=== PATIENT | male | born 1975 | race Caucasian/White ===

== ENCOUNTER 2016-08-10 03:40 | Emergency (ER) | payer MEDICAID ==
[~2016-08-10] VITALS: Ht 165.1 cm; Wt 82.1 kg
[2016-08-10 03:44] VITALS: BP 128/68
--- NOTE | 2016-08-10 03:49 | NUR ---
PT TAKEN TO BED 3
[2016-08-10] MEDS ORDERED: NACL 0.9% 1,000 ML IV ONE ×2 (04:00→05:30)
[2016-08-10] MEDS ORDERED: INSULIN HUMAN REGULAR 100 UNITS/ML 10 ML VIAL IVP ONE ×2 (04:00→05:35)
--- NOTE | 2016-08-10 04:01 | NUR ---
Dr. Monte evaluating patient at bedside.
--- NOTE | 2016-08-10 04:10 | NUR ---
41Y/M PATIENT PRESENTS TO ED WITH C/O ABDOMINAL PAIN X 1 HR . PT STATES PAIN WHEN WOKE UP X 1 HR WITH FEELING NAUSEA, NO FEVER, NO MEDICAL HX, HEAVY DRINK.; SKIN IS PINK/WARM/DRY; AAOX4 WITH EVEN AND STEADY GAIT; LUNGS CLEAR BL; HR EVEN AND REGULAR; PT DENIES ANY FEVER, CP, SOB, OR COUGH AT THIS TIME; PATIENT STATES PAIN OF 9/10 AT THIS TIME; VSS; PATIENT POSITIONED FOR COMFORT; HOB ELEVATED; BEDRAILS UP X2; BED DOWN. ER MD MADE AWARE OF PT STATUS.
[2016-08-10 04:14] LABS: MEAN CORPUSCULAR HEMOGLOBIN 33 pg (27-31)
[2016-08-10 04:14] LABS: APPEARANCE,URINE CLEAR (CLEAR); BILIRUBIN,URINE NEGATIVE (NEGATIVE); BLOOD, URINE NEGATIVE (NEGATIVE); COLOR,URINE YELLOW (YELLOW); LEUKOCYTE ESTERASE ,URINE NEGATIVE (NEGATIVE); NITRITE, URINE NEGATIVE (NEGATIVE); PROTEIN,URINE NEGATIVE (NEGATIVE); UGLUCOSE 3+ (NEGATIVE); UROBILINOGEN,URINE 0.2 EU/dL (0.2 - 1)
[2016-08-10 04:18] LABS: HEMATOCRIT 39.9 % (36-52); HEMOGLOBIN 13.4 g/dL (12.0-18.0); MEAN CORPUSCULAR HGB CONC 34 g/dL (33-37); MEAN CORPUSCULAR VOLUME 97 fL (80-94); PLATELET COUNT (AUTO) 85 K/uL (140-450); RED BLOOD CELL COUNT(AUTO) 4.11 MIL/uL (4.20-6.10); WHITE BLOOD COUNT (AUTO) 8.9 K/uL (4.8-10.8)
[2016-08-10 04:23] LABS: BACTERIA,URINE 0-2 (RARE) /HPF (None Seen); RBC,URINE 0-5 (RARE) /HPF (0-5); SQUAMOUS EPITHELIAL CELL,UR 0-3 (FEW) /LPF (0-3 (FEW)); WBC,URINE 0-5 (RARE) /HPF (0-5)
[2016-08-10 04:29] LABS: ANION GAP 24.2 (8-16); BAND % (MANUAL) 3 % (0-8); CALCIUM 8.3 mg/dL (8.5-10.1); CARBON DIOXIDE 19.2 mmol/L (21-32); CHLORIDE 95 mmol/L (98-107); CREATININE 0.8 mg/dL (0.6-1.3); EOSINOPHILS % (MANUAL) 2 % (0-4); GFR ARICAN-AMERICAN 137 mL/min (>90); GFR NON ARICAN-AMERICAN 113 mL/min (>90); GLUCOSE 352 mg/dL (74-106); LYMPHOCYTES % (MANUAL) 10 % (20-46); MONOCYTES % (MANUAL) 6 % (5-12); NEUTROPHILS % (MANUAL) 79 (43-65); POTASSIUM 3.4 mmol/L (3.5-5.1); SODIUM SERUM 135 mmol/L (136-145); UREA NITROGEN, BLOOD 9 mg/dL (7-18)
[2016-08-10 04:34] LABS: ALANINE AMINOTRANSFERASE 98 U/L (12-78); ALBUMIN 2.9 g/dL (3.4-5.0); ALKALINE PHOSPHATASE 186 U/L (46-116); AMYLASE 31 U/L (25-115); ASPARTATE AMINOTRANSFERASE 91 U/L (15-37); LIPASE 223 U/L (73-393); TOTAL BILIRUBIN 1.2 mg/dL (0.0-1.0); TOTAL PROTEIN, SERUM 7.6 g/dL (6.4-8.2)
[2016-08-10 04:35] LABS: ACETONE, SERUM NEGATIVE (NEGATIVE)
--- NOTE | 2016-08-10 04:38 | NUR ---
PT TAKEN TO CT
--- NOTE | 2016-08-10 04:49 | NUR ---
PT RETURN FROM CT
[2016-08-10] MEDS ORDERED: MORPHINE SULFATE 4 MG/ML SYR IVP ONE (05:30)
[2016-08-10] MEDS ORDERED: POTASSIUM CHLORIDE 10 MEQ TABER PO ONE (05:35)
--- NOTE | 2016-08-10 05:51 | NUR ---
Patient appears to be resting comfortably in bed. Vital Signs within normal limits. Respirations even and unlabored.
--- NOTE | 2016-08-10 06:35 | NUR ---
Patient discharged with v/s stable. Written and verbal after care instructions given and explained. Patient alert, oriented and verbalized understanding of instructions. Ambulatory with steady gait. All questions addressed prior to discharge. ID band removed. Patient advised to follow up with PMD. Rx of METFORMIN 1000 MG given. Patient educated on indication of medication including possible reaction and side effects. Opportunity to ask questions provided and answered. D/C BY DR. NEWTON
[2016-08-10 06:38] VITALS: BP 138/85
== END 2016-08-10 06:35 | disposition home or self-care (01) ==
LOC: MED 03:40
DX: K74.60 Unspecified cirrhosis of liver (principal); E11.9 Type 2 diabetes mellitus without complications; J45.909 Unspecified asthma, uncomplicated
CPT/HCPCS: 36415; 74176; 80053; 81001; 82009; 82150; 82948; 83690; 85025; 96361; 96374; 96375; 96376; 99285; G0482; J1815; J2270; J7030

== ENCOUNTER 2017-09-29 18:13 | Emergency (ER) | payer OTHER ==
[~2017-09-29] VITALS: Ht 165.1 cm; Wt 81.6 kg
--- NOTE | 2017-09-29 18:32 | NUR ---
PT TAKEN VIA WC TO BED 11
[2017-09-29 18:33] VITALS: BP 140/90
--- NOTE | 2017-09-29 18:33 | NUR ---
DR POLLACK AND ER STAFF AT BEDSIDE
[2017-09-29] MEDS ORDERED: NACL 0.9% 1,000 ML IV ONE (18:40)
--- NOTE | 2017-09-29 18:48 | NUR ---
PATIENT PRESENTS TO ED WITH C/O DIFFICULTY BREATHING . PT STATES SYMPTOMS STARTED TODAY. PUT PT ON BEDSIDE MONITOR. HR 94 SPO2 94%, RR 16 BP 138/88. DENIES N/V/D; SKIN IS PINK/WARM/DRY; AAOX4 WITH EVEN AND STEADY GAIT; LUNGS CLEAR BL; HR EVEN AND REGULAR; PT DENIES ANY FEVER, CP, SOB, OR COUGH AT THIS TIME; PATIENT STATES PAIN OF 0/10 AT THIS TIME; VSS; PATIENT POSITIONED FOR COMFORT; HOB ELEVATED; BEDRAILS UP X2; BED DOWN. ER MD MADE AWARE OF PT STATUS.
[2017-09-29 19:11] LABS: BASOPHILS % (AUTO) 0.5 % (0.0-2.0); EOSINOPHILS # (AUTO) 0.1 K/uL (0-0.4); HEMATOCRIT 43.5 % (36-52); LYMPHOCYTES # (AUTO) 2.1 K/uL (2.0-11.5); LYMPHOCYTES % (AUTO) 39.1 % (20.5-51.1); MEAN CORPUSCULAR HEMOGLOBIN 32 pg (27-31); MEAN CORPUSCULAR HGB CONC 35 g/dL (33-37); MEAN CORPUSCULAR VOLUME 93.5 fL (80-94); MONOCYTES # (AUTO) 0.4 K/uL (0.8-1.0); MONOCYTES % (AUTO) 7.9 % (1.7-9.3); NEUTROPHILS # (AUTO) 2.7 K/uL (1.8-7.7); NEUTROPHILS % (AUTO) 50.5 % (42.2-75.2); PLATELET COUNT (AUTO) 79 K/uL (140-450); RED BLOOD CELL COUNT(AUTO) 4.65 MIL/uL (4.20-6.10); RED CELL DISTRIBUTION WIDTH 13.9 % (11.6-13.7); WHITE BLOOD COUNT (AUTO) 5.3 K/uL (4.8-10.8)
--- NOTE | 2017-09-29 19:14 | NUR ---
REPORT GIVEN TO ORTHOTICS PROSTHETICS ASSISTANT RN FOR CONTINUITY OF CARE. PT ON STABLE CONDITION AT THIS TIME.
--- NOTE | 2017-09-29 19:15 | NUR ---
RECEIVED REPORT FROM AM NURSE. PT RESTING IN BED, DENIES PAIN, VSS, PT REPORTS SLIGHT SOB, SPO2 96% ON 2L NC, RR 18 EVEN AND UNLABORED. ALL NEEDS MET AT THIS TIME.
[2017-09-29 19:28] LABS: ALBUMIN 3.6 g/dL (3.4-5.0); ANION GAP 21.5 (8-16); CARBON DIOXIDE 20.2 mmol/L (21-32); POTASSIUM 3.7 mmol/L (3.5-5.1); TOTAL BILIRUBIN 1.1 mg/dL (0.0-1.0)
--- NOTE | 2017-09-29 19:30 | NUR ---
EKG PERFORMED AT BEDSIDE, PT LEFT WITH GOWN ON AND RAILS UP
--- NOTE | 2017-09-29 19:56 | NUR ---
RT AT BEDSIDE FOR ABG
--- NOTE | 2017-09-29 20:08 | NUR ---
Alexandra alexandra in EDM - 09/29/17 at 2009 by JERICA PER NIGHT CLERK AUDITOR, PT'S FRIEND SIENA CALLED , LEFT HER NUMBER FOR TRANSPORT. MADE PT AWARE.
[2017-09-29 20:13] LABS: BARBITURATE, URINE NEG. ng/ml (NEG <=200); BENZODIAZEPINE, URINE NEG. ng/mL (NEG <=200); CANNABINOID, URINE NEG. ng/mL (NEG <=50); COCAINE, URINE NEG. ng/mL (NEG <=300); OPIATE, URINE NEG. ng/mL (NEG <=2000); PHENCYCLIDINE SCREEN,URINE NEG. ng/mL (NEG <=25)
--- NOTE | 2017-09-29 20:38 | NUR ---
PT RESTING IN BED, DENIES PAIN, DENIES SOB, SPO2 94% ON RA, RR 14 EVEN AND UNLABORED. BLOOD SUGAR 435 AT THIS TIME AFTER 1L NS BOLUS. MADE AWARE.
--- NOTE | 2017-09-29 20:54 | NUR ---
Dr. Monte evaluating patient at bedside.
[2017-09-29] MEDS ORDERED: INSULIN REGULAR, HUMAN 100 UNIT/ML VIAL IVP ONE ×2 (21:50→23:55)
--- NOTE | 2017-09-29 23:20 | NUR ---
PT RESTING IN BED COMFORTABLY, RADHA, BS 273, ER MD MADE AWARE. ALL NEEDS MET AT THIS TIME
--- NOTE | 2017-09-30 00:38 | NUR ---
BLOOD SUGAR 268, ER MADE AWARE.
[2017-09-30 01:27] VITALS: BP 120/55
--- NOTE | 2017-09-30 01:28 | NUR ---
Patient discharged with v/s stable. Written and verbal after care instructions given and explained. Patient alert, oriented and verbalized understanding of instructions. Ambulatory with steady gait. All questions addressed prior to discharge. ID band removed. Patient advised to follow up with PMD. Rx of METFORMIN given. Patient educated on indication of medication including possible reaction and side effects. Opportunity to ask questions provided and answered.
== END 2017-09-30 01:28 | disposition home or self-care (01) ==
LOC: MED 18:13
DX: E11.65 Type 2 diabetes mellitus with hyperglycemia (principal); K74.60 Unspecified cirrhosis of liver
CPT/HCPCS: 36415; 36600; 71045; 80053; 80305; 82803; 82948; 83880; 84484; 85025; 93005; 96361; 96374; 96376; 99285; G0482; J1815; J7030; Q0092

== ENCOUNTER 2017-10-06 17:55 | Emergency (ER) | payer OTHER ==
[~2017-10-06] VITALS: Ht 172.7 cm; Wt 81.6 kg
[2017-10-06 18:23] VITALS: BP 124/56
--- NOTE | 2017-10-06 18:40 | NUR ---
PATIENT SENT FROM HIS PCP OFFICE FOR HIGH BLOOD SUGAR. PATIENT DENIES SYMPTOMS. REPORTS WAS RECENTLY RX GLUCOPHAGE BUT HAS YET TO TAKE IT. PATIENT CURRENTLY TAKING METFORMIN. DENIES N/V/D; SKIN IS PINK/WARM/DRY; AAOX4 WITH EVEN AND STEADY GAIT; LUNGS CLEAR BL; HR EVEN AND REGULAR; PT DENIES ANY FEVER, CP, SOB, OR COUGH AT THIS TIME; PATIENT STATES PAIN OF 0/10 AT THIS TIME; VSS; PATIENT POSITIONED FOR COMFORT; HOB ELEVATED; BEDRAILS UP X2; BED DOWN. ER MD MADE AWARE OF PT STATUS.
--- NOTE | 2017-10-06 19:13 | NUR ---
REPORT GIVEN TO PAMELA BIRD
--- NOTE | 2017-10-06 19:15 | NUR ---
PT LAYING IN BED, LIGHTS DIMMNED , COMFORT NEEDS MET AT THIS TIME, WILL CONTINUE TO MONITOR.
[2017-10-06] MEDS ORDERED: NACL 0.9% 500 ML IV ONE (19:22)
[2017-10-06 19:58] LABS: BASOPHILS % (AUTO) 0.6 % (0.0-2.0); EOSINOPHILS # (AUTO) 0.1 K/uL (0-0.4); EOSINOPHILS % (AUTO) 1.9 % (0.0-4.0); HEMATOCRIT 39.2 % (36-52); HEMOGLOBIN 13.6 g/dL (12.0-18.0); LYMPHOCYTES # (AUTO) 1.1 K/uL (2.0-11.5); LYMPHOCYTES % (AUTO) 25.8 % (20.5-51.1); MEAN CORPUSCULAR HEMOGLOBIN 33 pg (27-31); MEAN CORPUSCULAR HGB CONC 35 g/dL (33-37); MONOCYTES # (AUTO) 0.6 K/uL (0.8-1.0); MONOCYTES % (AUTO) 13.6 % (1.7-9.3); NEUTROPHILS # (AUTO) 2.5 K/uL (1.8-7.7); NEUTROPHILS % (AUTO) 58.1 % (42.2-75.2); PLATELET COUNT (AUTO) 61 K/uL (140-450); RED BLOOD CELL COUNT(AUTO) 4.17 MIL/uL (4.20-6.10); RED CELL DISTRIBUTION WIDTH 13.7 % (11.6-13.7); WHITE BLOOD COUNT (AUTO) 4.2 K/uL (4.8-10.8)
[2017-10-06 20:11] LABS: ACETONE, SERUM NEGATIVE (NEGATIVE)
[2017-10-06 20:16] LABS: ALBUMIN 3.4 g/dL (3.4-5.0); ANION GAP 17.6 (8-16); ASPARTATE AMINOTRANSFERASE 48 U/L (15-37); CARBON DIOXIDE 22.2 mmol/L (21-32); CHLORIDE 92 mmol/L (98-107); CREATININE 0.9 mg/dL (0.7-1.3); GFR ARICAN-AMERICAN 119 mL/min (>90); POTASSIUM 3.8 mmol/L (3.5-5.1); SODIUM SERUM 128 mmol/L (136-145); TOTAL BILIRUBIN 1.3 mg/dL (0.0-1.0); UREA NITROGEN, BLOOD 10 mg/dL (7-18)
[2017-10-06] MEDS ORDERED: INSULIN REGULAR, HUMAN 100 UNIT/ML VIAL SUBQ ONE ×2 (20:45→21:10)
[2017-10-06 21:16] LABS: GLUCOSE 518 mg/dL (74-106)
[2017-10-06 21:50] VITALS: BP 126/64
--- NOTE | 2017-10-06 21:50 | NUR ---
Patient discharged with v/s stable. Written and verbal after care instructions given and explained. Patient verbalized understanding. Ambulatory with steady gait. All questions addressed prior to discharge. Advised to follow up with PMD.
== END 2017-10-06 21:50 | disposition home or self-care (01) ==
LOC: MED 17:55
DX: E11.65 Type 2 diabetes mellitus with hyperglycemia (principal)
CPT/HCPCS: 36415; 80053; 82009; 82948; 85025; 96360; 96361; 96372; 99285; J1815; J7030

== ENCOUNTER 2017-12-30 04:00 | Emergency (ER) | payer OTHER ==
[~2017-12-30] VITALS: Ht 165.1 cm; Wt 81.6 kg
[2017-12-30 04:05] VITALS: BP 167/90
--- NOTE | 2017-12-30 04:10 | NUR ---
PT PRESENTS TO ED WITH STANTON X4 DAYS WITH 7/10 PAIN. PT STATES PAIN STARTS AT BACK OF NECK AND MOVES UP TO OCCIPITAL SCALP WITH CONTINUOUS TENTION TYPE OF PAIN. PT DESCRIBES INTERMITTENT BLURRED VISION X4 DAYS. NEURO INTACT. A&OX4. PT STATES NO N/V/D, NO DIZZINES, NO ALOC. PT HAS HX OF DM. POSITIONED IN BED FOR COMFORT. ER MD AWARE. CONTINUE TO MONITOR.
--- NOTE | 2017-12-30 04:10 | NUR ---
PT AMBULATED TO ED BED 12
[2017-12-30] MEDS ORDERED: NACL 0.9% 1,000 ML IV ONE (04:33)
[2017-12-30] MEDS ORDERED: METOCLOPRAMIDE 10 MG/2 ML INJ VIAL IVP ONE (04:35)
[2017-12-30] MEDS ORDERED: KETOROLAC 30 MG/ML VIAL IVP ONE (04:35)
[2017-12-30] MEDS ORDERED: diphenhydrAMINE 50 MG/ML VIAL IVP ONE (04:35)
[2017-12-30] MEDS ORDERED: DIAZEPAM 5 MG TAB PO ONE (05:45)
[2017-12-30 06:10] VITALS: BP 121/69
--- NOTE | 2017-12-30 06:10 | NUR ---
Patient discharged with v/s stable. Written and verbal after care instructions given and explained. Patient alert, oriented and verbalized understanding of instructions. Ambulatory with steady gait. All questions addressed prior to discharge. ID band removed. Patient advised to follow up with PMD. Rx of Valium, Naprosyn, and Sudafed given. Patient educated on indication of medication including possible reaction and side effects. Opportunity to ask questions provided and answered.
== END 2017-12-30 06:10 | disposition home or self-care (01) ==
LOC: MED 04:00
DX: R51 Headache (principal); E11.9 Type 2 diabetes mellitus without complications
CPT/HCPCS: 70450; 82948; 96374; 96375; 99284; J1200; J1885; J2765; J7030

== ENCOUNTER 2017-12-31 15:17 | Emergency (ER) | payer OTHER ==
[~2017-12-31] VITALS: Ht 165.1 cm; Wt 83.5 kg
[2017-12-31 15:36] VITALS: BP 131/84
--- NOTE | 2017-12-31 16:33 | NUR ---
PT AMBULATED TO ER BED 05
[2017-12-31 16:35] VITALS: BP 131/84
--- NOTE | 2017-12-31 16:35 | NUR ---
42y/m bib self c/o perssure headache x 5 days with mild dizziness, denies injury/trauma; full clear speech, no facial asymmetry, denies photophobia, seen yesterday same complaint, be down, bedrail up x 1, er md aware and notified of pt status. hx; dm rx; metformin, glipizide, ibuprofen, naproxen, valium, pseudoephedrine
--- NOTE | 2017-12-31 17:33 | NUR ---
pt eloped, no futher care by dr. yuan, left without dc instructions
== END 2017-12-31 17:33 | disposition left against medical advice (07) ==
LOC: MED 15:17
DX: R51 Headache (principal); E11.9 Type 2 diabetes mellitus without complications
CPT/HCPCS: 99281

== ENCOUNTER 2018-01-01 22:38 | Emergency (ER) | payer OTHER ==
[~2018-01-01] VITALS: Ht 165.1 cm; Wt 81.6 kg
[2018-01-01 22:52] VITALS: BP 128/82
--- NOTE | 2018-01-01 22:54 | NUR ---
42/M W C/O PERSISTENT POSTERIOR HEADACHE X 6 DAYS. DENIES TRAUMA/INJURY, VISUAL DISTURBANCES, N/V, FEVER/CHILLS. REPORTS HE HAS BEEN TAKING 2 IBUPROFEN AND BEER WHICH HAS HELPED WITH HEADACHE. HOWEVER HEADACHE IS PERSISTENT AND CONSTANT. REPORTS TO BE DIRKING 18 BEERS DAILY AND HAS BEEN DECREASING CONSUMPTION. AMB WITH STEADY GAIT. GCS 15,AOX4. PMH: DM
--- NOTE | 2018-01-01 22:54 | NUR ---
Patient ambulated to bed 12. RN evaluating patient at bedside.
[2018-01-01] MEDS ORDERED: NACL 0.9% 1,000 ML IV SCH (23:12)
[2018-01-01] MEDS ORDERED: PROCHLORPERAZINE 10 MG/2 ML VIAL IVP ONE (23:15)
[2018-01-01] MEDS ORDERED: PROCHLORPERAZINE 10 MG/2 ML VIAL ONE (23:31)
[2018-01-02 00:34] VITALS: BP 126/82
--- NOTE | 2018-01-02 00:34 | NUR ---
Patient discharged with v/s stable. Written and verbal after care instructions given and explained. Patient verbalized understanding. Ambulatory with steady gait. All questions addressed prior to discharge. Advised to follow up with PMD. IV removed, catheter intact and site benign. Applied folded 4x4 gauze and tape to stop bleeding.
== END 2018-01-02 00:34 | disposition home or self-care (01) ==
LOC: MED 22:38
DX: G43.909 Migraine, unspecified, not intractable, without status migrainosus (principal); F10.239 Alcohol dependence with withdrawal, unspecified; E11.9 Type 2 diabetes mellitus without complications
CPT/HCPCS: 96374; 99284; J0780; J7030

== ENCOUNTER 2018-03-02 16:54 | Emergency (ER) | payer OTHER ==
[~2018-03-02] VITALS: Ht 165.1 cm; Wt 73.3 kg
[2018-03-02 16:56] VITALS: BP 128/80
--- NOTE | 2018-03-02 18:51 | NUR ---
PATIENT AMBULATED TO BED 10
--- NOTE | 2018-03-02 18:57 | NUR ---
42 YO M BIB FAMILY W/ C/O 10 MEDIAL UPPER ABD PAIN X 1 WEEK. PT REPORTS DIARRHEA (2-3 EPISODES TODAY), DENIES N/V. PT REPORTS FEELING "A LITTLE OFF BALANCE", DENIES DIZZINESS/CP/SOB. AAOX4, GCS 15. ABD SOFT AND TENDER TO PALPATION. BOWEL SOUNDS ACTIVE X 4. NAD. VSS. AWAITING ER MD CARTY.
--- NOTE | 2018-03-02 19:09 | NUR ---
Pt report given to Jacob SANTIAGO. Transfer of care at this time.
--- NOTE | 2018-03-02 19:09 | NUR ---
ASSUMED CARE OF PT FROM PAMELA RAMÍREZ
[2018-03-02] MEDS ORDERED: INSULIN REGULAR, HUMAN 100 UNIT/ML VIAL SUBQ ONE (20:00)
[2018-03-02] MEDS ORDERED: NACL 0.9% 1,000 ML IV ONE (20:00)
[2018-03-02] MEDS ORDERED: ONDANSETRON 4 MG/2 ML VIAL IVP ONE (20:00)
[2018-03-02 20:20] LABS: BASOPHILS % (AUTO) 0.7 % (0.0-2.0); EOSINOPHILS # (AUTO) 0.1 K/uL (0-0.4); EOSINOPHILS % (AUTO) 2.1 % (0.0-4.0); HEMATOCRIT 40.8 % (36-52); HEMOGLOBIN 14.4 g/dL (12.0-18.0); LYMPHOCYTES # (AUTO) 0.8 K/uL (2.0-11.5); LYMPHOCYTES % (AUTO) 21.9 % (20.5-51.1); MEAN CORPUSCULAR HEMOGLOBIN 34 pg (27-31); MEAN CORPUSCULAR HGB CONC 35 g/dL (33-37); MEAN CORPUSCULAR VOLUME 94.6 fL (80-94); MONOCYTES # (AUTO) 0.6 K/uL (0.8-1.0); MONOCYTES % (AUTO) 16.5 % (1.7-9.3); NEUTROPHILS # (AUTO) 2.2 K/uL (1.8-7.7); NEUTROPHILS % (AUTO) 58.8 % (42.2-75.2); PLATELET COUNT (AUTO) 63 K/uL (140-450); RED BLOOD CELL COUNT(AUTO) 4.31 MIL/uL (4.20-6.10); RED CELL DISTRIBUTION WIDTH 14.7 % (11.6-13.7); WHITE BLOOD COUNT (AUTO) 3.7 K/uL (4.8-10.8)
[2018-03-02 20:37] LABS: APPEARANCE,URINE SLIGHTLY HAZY (CLEAR); COLOR,URINE YELLOW (YELLOW)
[2018-03-02 20:38] LABS: BILIRUBIN,URINE 1+ (NEGATIVE); BLOOD, URINE NEGATIVE (NEGATIVE); LEUKOCYTE ESTERASE ,URINE NEGATIVE (NEGATIVE); NITRITE, URINE NEGATIVE (NEGATIVE); UGLUCOSE 3+ (NEGATIVE)
[2018-03-02 21:29] LABS: POTASSIUM 3.6 mmol/L (3.5-5.1)
[2018-03-02 21:30] LABS: ALBUMIN 3.2 g/dL (3.4-5.0); ANION GAP 24.9 (8-16); CARBON DIOXIDE 18.7 mmol/L (21-32); TOTAL BILIRUBIN 1.1 mg/dL (0.0-1.0)
[2018-03-02 22:17] VITALS: BP 119/70
== END 2018-03-02 22:17 | disposition home or self-care (01) ==
LOC: MED 16:54
DX: K56.7 Ileus, unspecified (principal); E11.65 Type 2 diabetes mellitus with hyperglycemia; D69.6 Thrombocytopenia, unspecified
CPT/HCPCS: 36415; 74018; 80053; 81003; 83690; 85025; 96361; 96372; 96374; 99283; J1815; J2405; J7030; Q0092; 84450; 84460